=== PATIENT | male | born 1985 | race Caucasian/White ===

== ENCOUNTER 2019-12-17 18:03 | Emergency (ER) | payer MEDICAID, SELFPAY ==
[2019-12-17 18:22] VITALS: BP 168/96; PULSE 82; RESP 16; TEMP 37; O2SAT 99
--- NOTE | 2019-12-17 18:36 | ED.SKABFB ---
HPI - Skin/Abscess/Foreign Bdy General Chief complaint: Allergic Reaction Stated complaint: blisters all over body Source: patient and family Mode of arrival: ambulatory Limitations: no limitations History of Present Illness HPI narrative: This is a 33-year-old male that presents with a skin lesions diffuse located in his arms abdomen phase follicular in nature with some drainage currently no fever chills non paretic no shortness of breath no nausea vomiting no abdominal pain. complaint: rash Onset (ago): day(s) Tetanus up to date: unsure Location: generalized Severity: moderate Related Data Allergies Allergy/AdvReac Type Severity Reaction Status Date / Time amoxicillin [From Augmentin] AdvReac Mild Nausea and Verified 12/17/19 18:40 Vomiting clavulanic acid AdvReac Mild Nausea and Verified 12/17/19 18:40 [From Augmentin] Vomiting Review of Systems Review of Systems: All systems reviewed & are unremarkable except as noted in HPI and below PMFSH Past Medical History Medical History Patient denies medical problems Exam Const: General: cooperative, healthy appearing, comfortable and no acute distress HENMT: Head: normal to inspection General nose exam: Normal external nose present Face and sinus: normal facial exam and other ( follicular lesions on his face) Mouth: Yes Normal oral and palatal mucosa present Eyes: General: appearance normal, both eyes and all related structures Resp: Effort & Inspection: normal respiratory effort and able to speak in complete sentences Auscultation: clear to auscultation bilaterally Cardio: Palpation: normal PMI Rate: regular rate Rhythm: regular rhythm Heart sounds: S1 normal heart sound present and S2 normal heart sound present GI: Inspection: normal to inspection Percussion: Yes normal to percussion Back/Spine/Pelvis: Back: no CVA tenderness Skin: Lesions: lesion noted ( follicular lesions on diffuse) Neuro: General: oriented to person, oriented to place and oriented to time Psych: Appearance: grossly normal and well kempt Course Course Emergency Course: discussed plan with patient, will be sending antibiotics and antibiotic ointment to his pharmacy. Vital Signs Vital signs: Vital Signs Temperature 37.0 C 12/17/19 18:22 Pulse Rate 82 12/17/19 18:22 Respiratory Rate 16 12/17/19 18:22 Blood Pressure 168/96 H 12/17/19 18:22 Pulse Oximetry 99 08/17/20 18:22 Temperature 37.0 C 12/17/19 18:22 Pulse Rate 82 12/17/19 18:22 Respiratory Rate 16 12/17/19 18:22 Blood Pressure 168/96 H 12/17/19 18:22 Pulse Oximetry 99 12/17/19 18:22 Critical Care Time Critical Care Time Critical Care Time: No Discharge Plan Discharge Clinical Impression: Folliculitis Patient Disposition: Home, Self-Care Condition: Stable Instructions: Antibiotic Form, Acute Rash (ED), Folliculitis (ED) Additional Instructions: take medicine as prescribed and follow-up with primary care physician within 1 to 2 weeks further evaluation and treatment. Prescriptions: New sulfamethoxazole-trimethoprim [Bactrim DS] 800-160 mg tablet 1 tablet PO Q12H Qty: 20 RF: 0 mupirocin 2 % ointment 1 applic TOPICAL TID 7 Days Qty: 22 RF: 0 naproxen 500 mg tablet 500 mg PO BID PRN (Reason: pain) Qty: 20 RF: 0 Follow-up/Referrals: UNKNOWN,DOCTOR [Primary Care Provider] - Time of Disposition: 18:42
--- NOTE | 2019-12-17 18:46 | PC.NURSE ---
1830 oriented to [employer]
[2019-12-17 18:52] VITALS: BP 140/88; PULSE 78; RESP 16; TEMP 36.6; O2SAT 98
== END 2019-12-17 18:55 | disposition home or self-care (01) ==
PROVIDERS: Emergency Provider Emergency Medicine
DX: L73.9 Follicular disorder, unspecified (principal)
CPT/HCPCS: 99283

== ENCOUNTER 2020-02-16 21:43 | Emergency (ER) | payer MEDICAID, SELFPAY ==
--- NOTE | ~2020-02-16 | XR_ITS ---
EXAMINATION: XR chest 1V portable DATE: 02/16/2020 22:29 INDICATION: Chest pain. TECHNIQUE: A single frontal view of the chest was obtained. COMPARISON: Chest 2 views 01/10/2018 FINDINGS: Calcified left lung nodules and calcified left hilar lymph nodes are consistent with old gr anulomatous disease. No pleural effusion or pneumothorax. The heart size is normal. IMPRESSION: 1. No acute cardiopulmonary disease. Reviewed, dictated and finalized at location A.
--- NOTE | 2020-02-16 21:56 | ECG_ITS ---
Measurements Intervals [place] Rate: 132 P: 57 [place]: 152 QRS: 38 QRSD: 94 T: 44 QT: 307 QTc: 456 Interpretive Statements SINUS TACHYCARDIA NONSPECIFIC T-WAVE ABNORMALITY- INFERIOR LEADS ABNORMAL ECG Electronically Signed On 02-18-2020 6:32:51 CDT by Bill Lyons D.O.
[2020-02-16 22:09] VITALS: BP 107/51; PULSE 138; RESP 20; TEMP 36.7; O2SAT 100
[2020-02-16 22:10] VITALS: PULSE 132
[2020-02-16 22:22] VITALS: PULSE 88
[2020-02-16 22:23] VITALS: BP 115/54; PULSE 88; RESP 20; O2SAT 100
--- NOTE | 2020-02-16 22:29 | ED.GENADULT ---
HPI - General Adult General Chief complaint: Chest Pain Stated complaint: chest pain Source: patient Mode of arrival: ambulatory Limitations: no limitations History of Present Illness HPI narrative: Lito is a 34M with a PMH of tobacco abuse that presented to clinic after chest pain that started about an hour ago. He was driving his brother home when he started having chest tightness/pressure and palpitations. At first he thought it was anxiety but then it didn't go away so he decided to come in. It is associated with nausea and lightheadedness but no vomiting or syncope. It is better with coughing. Related Data Home Medications Medication Instructions Recorded Confirmed No Home Medications 02/16/20 02/16/20 Allergies Allergy/AdvReac Type Severity Reaction Status Date / Time amoxicillin [From Augmentin] AdvReac Mild Nausea and Verified 02/16/20 22:17 Vomiting clavulanic acid AdvReac Mild Nausea and Verified 02/16/20 22:17 [From Augmentin] Vomiting Review of Systems Constitutional: Constitutional: Reports no additional constitutional complaints Eyes: Eyes: Reports no additional eye complaints ENT: Reports system reviewed and no additional complaints, except as documented Cardiovascular: Cardiovascular: Reports as per HPI Respiratory: Respiratory: Reports as per HPI Gastrointestinal: Gastrointestinal: Reports no additional gastrointestinal complaints Genitourinary: Genitourinary: Reports no additional male genitourinary complaints Musculoskeletal: Musculoskeletal: Reports no additional musculoskeletal complaints Integumentary/Breasts: Skin/Breast: Reports system reviewed and no additional complaints, except as docu Neurologic: Reports system reviewed and no additional complaints, except as documented Psychiatric: Psychiatric: Reports no additional psychiatric complaints Endocrine: Endocrine: Reports no additional endocrine complaints Hematologic/Lymphatic: Hematologic/Lymphatic: Reports no additional hematologic/lymphatic complaints Allergic/Immunologic: Allergic/Immunologic: Reports no additional allergic/immunologic complaints COUNT INCLUDES THE [facility] Past Medical History Medical History (Updated 02/16/20 @ 23:13 by Emerson Landin DO) Patient denies medical problems Social History Social History Gender identity (if verbalized by the patient): Male Exam Const: General: no acute distress and alert Orientation/consciousness: patient oriented x3 Limitations: No altered mental status HENMT: Head: normal to inspection Eyes: Conjunctivae: conjunctivae normal Pupils: Equal, round and reactive pupils present Neck: Neck: normal visual inspection Chest: Chest palpation & inspection: normal inspection of the chest and no tenderness Resp: Effort & Inspection: normal respiratory effort, not labored, not tachypneic and no use of accessory muscles Auscultation: clear to auscultation bilaterally Cardio: Rate: tachycardic Rhythm: regular rhythm Heart sounds: no murmurs GI: Inspection: non-distended GI Palp: Yes Soft to palpation, No Tenderness to palpation present (GI) and No Guarding due to palpation present (GI) Skin: General skin exam: normal color Rashes: no rashes Neuro: General: patient oriented x3 and moves all extremities Extrem: General: normal to inspection Psych: Mental Status: mental status grossly normal Course Course Emergency Course: Lito was evaluated. An EKG, CXR and labs were ordered as well as 325 of aspirin. EKG showed sinus tachycardia with a rate of 132, normal axis, and no ST elevation/depression CXR showed no acute cardiopulmonary findings. Shortly after the exams his chest pain resolved and his HR returned to normal. Labs were largely unremarkable except a very minimally elevated D-dimer. However, as his HR and pain completely resolved PE is very unlikely so he was discharged as the rest of the labs/CXR we
[2020-02-16 22:32] LABS: Basophils Absolute Auto 0.05 K/mm3 (0.00-0.10); Basophils Percent Auto 0.6 % (0.0-1.0); Eosinophils Absolute Auto 0.27 K/mm3 (0.02-0.50); Eosinophils Percent Auto 3.2 % (1.0-6.0); Hematocrit 42.1 % (40.0-54.0); Hemoglobin 14.6 g/dL (14.0-18.0); Immature Granulocyte Absolute 0.07 K/mm3 (0.00-0.00); Immature Granulocyte Percent A 0.8 % (0.0-0.0); Lymphocytes Absolute Auto 2.84 K/mm3 (1.10-4.50); Lymphocytes Percent Auto 33.6 % (18.0-42.0); Mean Corpuscular HGB Conc 34.7 g/dL (32.0-36.0); Mean Corpuscular Hemoglobin 31.5 pg (27.0-31.0); Mean Corpuscular Volume 90.7 fL (78.0-102.0); Mean Platelet Volume 10.3 fl (8.7-11.0); Monocytes Absolute Auto 0.55 K/mm3 (0.10-0.90); Monocytes Percent Auto 6.5 % (2.0-11.0); Neutrophils Absolute Auto 4.7 K/mm3 (1.7-7.2); Neutrophils Percent Auto 55.3 % (50.0-70.0); Platelet Count Result 247 K/mm3 (150-420); Red Blood Count 4.64 M/mm3 (4.70-6.10); Red Cell Distribution Width 12.6 % (11.6-14.4); White Blood Count 8.4 K/mm3 (4.8-10.8)
[2020-02-16 22:49] LABS: Prothrombin Time 10.1 Seconds (9.64-11.0)
[2020-02-16 22:51] LABS: Alanine Aminotransferase 46 U/L (16-63); Albumin Level 3.9 g/dL (3.4-5.0); Alkaline Phosphatase 77 U/L (46-116); Anion Gap 11 mmol/L (8-16); Aspartate Amino Transferase 34 U/L (15-37); Bilirubin,Total 0.2 mg/dL (0.00-1.00); Blood Urea Nitrogen 16 mg/dL (7-18); Calcium 9.6 mg/dL (8.5-10.1); Carbon Dioxide 24 mmol/L (21-32); Chloride 103 mmol/L (98-108); Estimated CRCL calculation 110 ml/min; Estimated Glomerular Filt Rate > 60; Glucose 105 mg/dL (70-99); Osmolality Calculated 287 mOsm/kg (285-295); Potassium 3.5 mmol/L (3.5-5.1); Sodium 138 mmol/L (136-145); Total Protein 7.5 g/dL (6.4-8.2)
[2020-02-16 22:53] LABS: D Dimer 0.63 mg/L (0.19-0.50); Lipase 217 U/L (73-393); Troponin I < 0.02 ng/mL (0.00-0.056)
[2020-02-16 23:20] VITALS: BP 145/88; PULSE 88; RESP 20; TEMP 36.9; O2SAT 97
--- NOTE | 2020-02-17 01:46 | PC.NURSE ---
2300 pt denies chest pain, female in room. erp in room to discuss plan of care.
== END 2020-02-16 23:25 | disposition home or self-care (01) ==
PROVIDERS: Emergency Provider Family Medicine; PCP Family Medicine
DX: R07.9 Chest pain, unspecified (principal)
CPT/HCPCS: 36415; 71045; 80053; 83690; 84484; 85025; 85380; 85610; 93005; 99283; 99284

== ENCOUNTER 2020-05-12 18:13 | Emergency (ER) | payer OTHER, SELFPAY ==
--- NOTE | 2020-05-12 18:21 | ED.DENTAL ---
HPI - Dental/Oral General Chief complaint: Dental/Oral Stated complaint: toothache,earache Time Seen by Provider: 05/12/20 18:21 Source: patient and RN notes reviewed Mode of arrival: ambulatory Limitations: no limitations History of Present Illness HPI Narrative: Patient had gone to his dentist approximately 2 weeks ago. He was prescribed amoxicillin which helped for a few days but then his pain returned and was even worse. He is scheduled to see the dentist and approximately 5 weeks. He has been taking 800 mg of ibuprofen which is not helping with this pain. MD Complaint: tooth pain Location: Tooth # (16 & 17) Teeth map: 1. 2. Onset (ago): week(s) (2) Duration: intermittent Severity: severe Relieving factors: NSAIDs Exacerbating factors: chewing Context: history of dental caries Associated symptoms: gum swelling and ear pain Treatment prior to arrival: oral analgesic Related Data Allergies Allergy/AdvReac Type Severity Reaction Status Date / Time No Known Allergies Allergy Verified 05/12/20 18:30 Review of Systems Review of Systems: All systems reviewed & are unremarkable except as noted in HPI and below Constitutional: Constitutional: Denies chills and Denies fever(s) [facility] Past Medical History Medical History (Updated 05/12/20 @ 18:30 by Rashad Gold MD) Patient denies medical problems Surgical History Surgical History (Updated 05/12/20 @ 18:29 by Rashad Gold MD) S/P tube myringotomy As a child Social History Social History Gender identity (if verbalized by the patient): Male Exam Const: General: healthy appearing and no acute distress Nutritional Appearance: well nourished Orientation/consciousness: patient oriented x3 HENMT: Head: normal to inspection General nose exam: Normal external nose present Face and sinus: normal facial exam, edema on the left mandible and angle of jaw and Facial tenderness on exam of face and sinuses on the left maxilla and angle of jaw Mouth: Yes lip normal and Yes moist mucous membranes Teeth and gingiva: caries and gingiva abnormal edematous and tender Teeth image: 1. broken tooth with surrounding edema and tenderness. 2. broken tooth with surrounding edema and tenderness. Discharge Plan Discharge Clinical Impression: Dental caries Patient Disposition: Home, Self-Care Condition: Stable Instructions: Antibiotic Form, Toothache (ED) Additional Instructions: call the dentist and see if you can get in sooner because of the wisdom tooth Prescriptions: New clindamycin HCl 300 mg capsule 300 mg PO Q8H 10 Days Qty: 30 RF: 0 hydrocodone-acetaminophen [[place]] 5-325 mg tablet 1 tablet PO Q6H PRN (Reason: pain) Qty: 12 RF: 0 Follow-up/Referrals: Emerson Landin DO [Primary Care Provider] - Time of Disposition: 18:33
[2020-05-12 18:31] VITALS: BP 162/106; PULSE 96; RESP 18; TEMP 36.7; O2SAT 96
== END 2020-05-12 18:38 | disposition home or self-care (01) ==
PROVIDERS: Emergency Provider Emergency Medicine; PCP Family Medicine
DX: K02.9 Dental caries, unspecified (principal)
CPT/HCPCS: 99283